=== PATIENT | female | born 1975 | race African-American/Black ===

== ENCOUNTER 2018-12-11 14:20 | Emergency (ER) | payer OTHER ==
[~2018-12-11] VITALS: Ht 160 cm; Wt 93.0 kg
[~2018-12-11 14:20] MED LIST: AUGMENTIN 875875 MG PO; IBUPROFEN 200200 M1 PO; IRON SULFATE PO
[2018-12-11 14:56] LABS: URINE BILIRUBIN NEGATIVE (Negative); URINE BLOOD 2+ (Negative); URINE CLARITY CLEAR; URINE COLOR YELLOW; URINE GLUCOSE-RANDOM* NEGATIVE (Negative); URINE KETONES NEGATIVE (Negative); URINE LEUKOCYTES-REFLEX NEGATIVE (Negative); URINE NITRITE-REFLEX NEGATIVE (Negative); URINE PROTEIN (DIPSTICK) NEGATIVE (Negative); URINE UROBILINOGEN 0.2 E.U./dl (0.2-1.0)
[2018-12-11 14:57] LABS: HEMATOCRIT 37.3 % (37.0-47.0); MCH 24.5 pg (26.0-34.0); MCHC 32.2 g/dL (28.0-37.0); MCV 75.9 fL (80.0-100.0); RBC 4.92 mil/uL (4.20-5.00); RDW 13.7 % (10.5-14.5); WBC 11.5 thou/uL (4.0-11.0)
[2018-12-11 15:07] LABS: ANION GAP 11 mmol/L (7-16); BUN 12 mg/dL (7-18); CHLORIDE 104 mmol/L (98-107); CO2 24 mmol/L (21-32); CREATININE 0.9 mg/dL (0.6-1.0); GLUCOSE 103 mg/dL (74-106); POTASSIUM 3.4 mmol/L (3.5-5.1); SODIUM 139 mmol/L (136-145)
[2018-12-11 15:11] LABS: BACTERIA-REFLEX 1-9 Few /HPF (None Seen); CASTS None Seen /LPF (None Seen); CRYSTALS None Seen /LPF (None Seen); SQUAMOUS 0-3 Few /LPF (0-3); URINE RBC 3-10 Few /HPF (0-2); URINE WBC-REFLEX None Seen /HPF (0-5)
[2018-12-11 15:17] LABS: ALBUMIN 3.9 g/dL (3.4-5.0); SGOT 9 U/L (15-37); SGPT 14 U/L (30-65); TOTAL BILIRUBIN 0.5 mg/dL (<0.1-1.0); TOTAL PROTEIN 7.9 g/dL (6.4-8.2); TROPONIN-I <0.06 ng/mL (<0.06)
--- NOTE | 2018-12-11 18:07 | EKG ---
[address] [address] ELECTROCARDIOGRAM REPORT Name: YONNY ZAMORANO Room #: [facility]#: [id number] ������������������ Admission: 12/11/18 ������������������ Attend Phys: Discharge: ������������������ Date of : 73 Report #: [id number] ����������������������������������������������������������������� [id number] THIS REPORT FOR: //name// [facility] ED Test Date: 2018-12-11 Test Time: 15:02:48 Pat Name: YONNY JAUN Department: Room: Gender: F Filler Operator: ANA LAURALeslie : 1975 Requested By: Senait Estrella Order Number: [id number] MD: Kaleb Kaur Measurements Intervals [place] Rate: 73 P: 60 IN: 153 QRS: 6 QRSD: 89 T: 32 QT: 394 QTc: 435 Interpretive Statements Sinus rhythm Left ventricular hypertrophy No previous ECG available for comparison Electronically Signed On 12-11-2018 18:07:02 CDT by Kaleb Kaur [email or web address] ��������������������������������������������� <ELECTRONICALLY SIGNED> ���������������������������������������� By: Kaleb Kaur MD ��������������������������������������������� 12/11/18 1807 1502 1502 MD CARLOS A Oreilly
[2018-12-11 18:49] VITALS: BP 142/91
[2018-12-11] MEDS ORDERED: ANTIVERT25 MG PO (18:53)
== END 2018-12-11 18:55 | disposition home or self-care (01) ==
LOC: ER 14:20
PROVIDERS: Student in an Organized Health Care Education/Training Program
DX: H61.21 Impacted cerumen, right ear (principal); R42 Dizziness and giddiness; F17.210 Nicotine dependence, cigarettes, uncomplicated; Z98.890 Other specified postprocedural states